=== PATIENT | male | born 1985 | race Two or more races ===

== ENCOUNTER 2021-06-08 08:02 | Emergency (ER) | payer SELFPAY ==
[~2021-06-08] VITALS: Ht 167.6 cm; Wt 98.7 kg
[2021-06-08] MEDS ORDERED: ACYC-12 PO (09:12)
--- NOTE | 2021-06-08 09:13 | PHYS DOC ---
Past Medical History Past Surgical History: No Surgical History Adult General Chief Complaint Chief Complaint: SEXUALLY TRANSMITTED DISEASE HPI HPI The patient is a 36-year-old male who is otherwise healthy. He is [place]- speaking and fluent telephonic interpretation is used together history and complete examination. Patient presents for evaluation of painful sores to the tip of his penis. He states that they have been present for couple of weeks and that they have caused some discomfort with urination. He states that for about the past 4 years he has had about one similar episode each year which have resolved with [id number] vaginal cream which he purchased from the pharmacy. He has never previously sought care for this issue. He denies associated fevers, naus ea or vomiting, abdominal pain of any kind, flank pain, midline back pain, hematuria, polyuria or oliguria, inguinal pain, testicular or scrotal or perineal or rectal pain, changes in bowel habits. Review of Systems Review of Systems A 12 point review of systems was completed and was negative except where noted in HPI above. Physical Exam Physical Exam Middle-aged male appearing nontoxic and in no acute distress. Head is normocephalic and atraumatic. Neck is supple and nontender. Oropharynx is moist. Lungs are clear to auscultation at all stations. There is a normal S1 and S2 without rubs or gallops and capillary refill is appropriate, less than 2 seconds globally. Abdomen is soft, nontender and nondistended. Skin is warm and dry without cyanosis, clubbing or edema. Psychiatrically, the patient demonstrates appropriate mood and affect and is alert. Evaluation of the groin reveals multiple punctate vesicularappearing sores to the head of the penis. No abnormalities to the shaft of the penis, to the scrotum, to the inguinal region or perineum. Current Patient Data Vital Signs Vital Signs Date Time Temp Pulse Resp B/P (MAP) Pulse Ox O2 Delivery O2 Flow Rate FiO2 06/08/21 08:08 99.6 75 18 121/80 (94) 98 Room Air 99.6 Lab Values Laboratory Tests Test 06/08/21 08:20 06/08/21 09:39 Urine Collection Type Unknown Urine Color Yellow Urine Clarity Clear Urine pH 6.0 (<5.0-8.0) Urine Specific [place] >=1.030 (1.000-1.030) Urine Protein Negative mg/dL (NEG-TRACE) Urine Glucose (UA) >=1000 mg/dL (NEG) Urine Ketones (Stick) Trace mg/dL (NEG) Urine Blood Negative (NEG) Urine Nitrite Negative (NEG) Urine Bilirubin Negative (NEG) Urine Urobilinogen Dipstick 1.0 mg/dL (0.2 mg/dL) Urine Leukocyte Esterase Negative (NEG) Urine RBC 0 /HPF (0-2) Urine WBC 0 /HPF (0-4) Urine Squamous Epithelial Cells Occ /LPF Urine Bacteria 0 /HPF (0-FEW) Glucose (Fingerstick) 222 mg/dL (70-99) H EKG EKG [] Radiology/Procedures Radiology/Procedures [] Course & Med Decision Making Course & Med Decision Making History and examination seem most consistent with HSV. We will plan to treat empirically for same and will send GC/chlamydia, syphilis, HIV as well as HSV serologies. Plan to discharge home with antiviral course to follow-up closely with primary care. Patient understands and agrees. 0930: UA back and is remarkable for pronounced glucosuria without ketonuria. Accu-Chek in the 200s. Likely undiagnosed diabetes. Patient is counseled that he needs to follow this up with a primary care doctor and a list of PCPs has been provided. Will opt to cover more broadly for balanitis with clotrimazole and mupirocin along with the planned acyclovir. Patient understands that if he feels worse instead of better or develops other new symptoms of concern that he should return to the emergency department immediately for reevaluation. All questions are answered. Dragon Disclaimer Dragon Disclaimer This electronic medical record was generated, in whole or in part, using a voice recognition dictation system. Departure Departure Impression: Primary Impression: HSV infection Additional Impressions: Balanitis Hyperglycemia Disposition: HOME / SELF CARE / HOMELESS Condition: GOOD Patient Instructions: Balanitis, Genital Herpes Additional Instructions: Follow-up very closely with your primary care doctor in the office in the next 3 to 5 days for a reevaluation of your symptoms and discussion of next best steps in care. Begin taking the antiviral pills and the two topical creams as prescribed. We have tested you for other STDs as well and if your testing comes back positive we will contact you to let you know. Return to the emergency department right away for worsening symptoms of any kind or with any other new symptoms of concern. Your blood sugar was elevated today and you have a lot of sugar in your urine. You most likely have diabetes. It is extremely important that you follow-up in the primary care clinic with a primary care doctor in the next 3 to 5 days for reevaluation of all of your symptoms as well as further investigation and treatment of your elevated blood sugar. Scripts Mupirocin (Mupirocin) 1 Gm Oin.pf.maurice 1 MAURICE TP TID for 7 Days, #22 GM 0 Refills apply to affected area(s) Prov: URI KAYE MD 06/08/21 Clotrimazole (CLOTRIMAZOLE) 15 Gm Cream..g. 1 MAURICE TP BID for 7 Days, #30 GM Prov: URI KAYE MD 06/08/21 Acyclovir (ACYCLOVIR) 400 Mg Tablet 1 TAB PO TID for 10 Days, #30 TAB Prov: URI KAYE MD 06/08/21 Problem Qualifiers URI KAYE MD Jun 08, 2021 09:13
[2021-06-08 09:19] LABS: BILIRUBIN,URINE NEGATIVE (NEG); CLARITY,URINE CLEAR; COLOR,URINE YELLOW; NITRITE,URINE NEGATIVE (NEG); PROTEIN,URINE NEGATIVE (NEG-TRACE)
[2021-06-08 09:29] LABS: BACTERIA,URINE 0 /HPF (0-FEW); RBC,URINE 0 /HPF (0-2); WBC,URINE 0 /HPF (0-4)
[2021-06-08] MEDS ORDERED: MUPI1OIN6 TP (10:01)
[2021-06-08] MEDS ORDERED: CLOT15CR23 TP (10:01)
[2021-06-08 10:19] VITALS: BP 154/93
== END 2021-06-08 10:30 | disposition home or self-care (01) ==
LOC: ER 08:02
DX: B00.9 Herpesviral infection, unspecified (principal); N48.1 Balanitis; R73.9 Hyperglycemia, unspecified
CPT/HCPCS: 36415; 81001; 82962; 86592; 86703; 87491; 87591; 99285-25